=== PATIENT | female | born 1985 | race Caucasian/White ===

== ENCOUNTER 2017-01-20 08:33 | Emergency (ER) | payer SELFPAY ==
[2017-01-20] MEDS ORDERED: MUPIROCIN 2% OINTMENT 22 GM TP ONE (10:02)
--- NOTE | 2017-01-20 10:06 | ER Document Report ---
HPI - HPI Patient complains to provider of: rash Onset: Last week Onset/Duration: Persistent Pain Level: 2 Context: Patient presents to the emergency department with complaints of a rash that started last week. Patient reports rash to her chin left forearm right flank. She reports when she was younger she was told it was shingles. She reports it was brought on by stress. She denies other symptoms such as fever vomiting diarrhea. She has a several areas of Honey colored crusted rash. No signs of erythema /warmth/swelling. She reports the area to her LFA is itchy. Associated Symptoms: None Exacerbated by: Denies Relieved by: Denies Similar symptoms previously: Yes Recently seen / treated by doctor: No - REPRODUCTIVE Reproductive: DENIES: : - DERM Skin Color: Normal Past Medical History - General Information source: Patient Last Menstrual Period: iud - Social History Smoking Status: Current Every Day Smoker Cigarette use (# per day): Yes Chew tobacco use (# tins/day): No Frequency of alcohol use: Social Drug Abuse: Marijuana Occupation: caregiver Lives with: Family Family History: Reviewed & Not Pertinent Patient has suicidal ideation: No Patient has homicidal ideation: No Renal/ Medical History: Denies: Hx Peritoneal Dialysis Psychiatric Medical History: Reports: Hx Anxiety Past Surgical History: Reports: Hx Section - 2003 - Immunizations Hx Diphtheria, Pertussis, Tetanus Vaccination: No Vertical Provider Document - CONSTITUTIONAL Agree With Documented VS: Yes Exam Limitations: No Limitations General Appearance: WD/WN, No Apparent Distress - INFECTION CONTROL TRAVEL OUTSIDE OF THE [place] IN LAST 30 DAYS: No - HEENT HEENT: Atraumatic, Normocephalic - NECK Neck: Normal Inspection, Supple. negative: Lymphadenopathy-Left, Lymphadenopathy-Right - RESPIRATORY Respiratory: Breath Sounds Normal, No Respiratory Distress O2 Sat by Pulse Oximetry: 98 - CARDIOVASCULAR Cardiovascular: Regular Rate - NEURO Level of Consciousness: Awake, Alert, Appropriate Motor/Sensory: No Motor Deficit - DERM Integumentary: Rash Adult Front & Back Diagram: 1 - honey colored crusted rash, no open wounds, no pustule, no vesicles 2 - honey colored crusted rash, no open wounds, no pustule, no vesicles 3 - honey colored crusted rash, no open wounds, no pustule, no vesicles Course - Re-evaluation Re-evalutation: 01/20/17 10:16 Patient shown pictures of impetigo. Patient was also instructed on treatment. Instructed to follow up with dermatology for continued symptoms. She was also cautioned about keeping her hands clean, possible spread. She verbalized understanding.. - Vital Signs Vital signs: Temp Pulse Resp BP Pulse Ox 98.1 F 82 16 111/70 98 01/20/17 08:39 01/20/17 08:39 01/20/17 08:39 01/20/17 08:39 01/20/17 08:39 Discharge - Discharge Clinical Impression: Rash, Impetigo Condition: Stable Disposition: HOME, SELF-CARE Instructions: Cephalexin ([facility]), Bactroban Ointment ([facility]), Impetigo ([facility]) Additional Instructions: *You have been treated for a rash *Take medication as prescribed *Apply ointment to sites three times a day for 10 days *Monitor the site for signs of infection such as increasing pain, redness, swelling, warmth *Wash your hands, keep the sites clean *Follow up with a pediatric clinical nurse specialist within one week for recheck *Return to ED for signs of infection, worsening condition, changes, needs Prescriptions: Cephalexin Monohydrate [Keflex 250 Mg Capsule] 250 mg PO QID #28 capsule Forms: Return to Work
[2017-01-20 10:25] VITALS: BP 117/74
== END 2017-01-20 10:26 | disposition home or self-care (01) ==
LOC: ER 08:33
DX: L01.00 Impetigo, unspecified (principal); F17.210 Nicotine dependence, cigarettes, uncomplicated
CPT/HCPCS: 99282; 87070; 87205; J3490

== ENCOUNTER 2017-01-26 06:39 | Emergency (ER) | payer SELFPAY ==
[2017-01-26] MEDS ORDERED: PREDNISONE 20 MG TABLET PO ONE (06:59)
[2017-01-26] MEDS ORDERED: SULFAMETHOXAZOLE/TRIMETHOPRIM 800-160 MG TABLET PO ONE (06:59)
--- NOTE | 2017-01-26 07:00 | ER Document Report ---
ED General - General Chief Complaint: Rash Stated Complaint: RASH Mode of Arrival: Ambulatory Information source: Patient, [facility] Records Notes: 31-year-old female presents with complaints of a rash one week duration. Patient was seen here diagnosis impetigo. Will start on Bactroban and Keflex notes improvement of her rash however the area on the left elbow has worsened. Pt also notes she has an itchy rash around the abdomen and left elbow . pt admits to putting tea tree oil on it to help dry it out TRAVEL OUTSIDE OF THE [place] IN LAST 30 DAYS: No - HPI Onset: Last week Onset/Duration: Worse Quality of pain: Achy Severity: Mild Pain Level: 1 Associated symptoms: Other Exacerbated by: Denies Relieved by: Denies Similar symptoms previously: Yes Recently seen / treated by doctor: Yes - Related Data Allergies/Adverse Reactions: poison miladys extract Allergy (Verified 01/26/17 06:48) Past Medical History - Social History Smoking Status: Current Some Day Smoker Cigarette use (# per day): Yes Chew tobacco use (# tins/day): No Smoking Education Provided: No Frequency of alcohol use: Occasional Drug Abuse: Marijuana Family History: Reviewed & Not Pertinent Patient has suicidal ideation: No Patient has homicidal ideation: No Renal/ Medical History: Denies: Hx Peritoneal Dialysis Psychiatric Medical History: Reports: Hx Anxiety Past Surgical History: Reports: Hx Section - 2003 - Immunizations Hx Diphtheria, Pertussis, Tetanus Vaccination: No Review of Systems - Review of Systems Notes: REVIEW OF SYSTEMS: CONSTITUTIONAL : Denies fever, chills, or sweats. Denies recent illness. EENT: Denies eye, ear, throat, or mouth pain or symptoms. Denies nasal or sinus congestion or discharge. Denies throat, tongue, or mouth swelling or difficulty swallowing. CARDIOVASCULAR: Denies chest pain. Denies palpitations or racing or irregular heart beat. Denies ankle edema. RESPIRATORY: Denies cough, cold, or chest congestion. Denies shortness of breath, difficulty breathing, or wheezing. GASTROINTESTINAL: Denies abdominal pain or distention. Denies nausea, vomiting , or diarrhea. Denies blood in vomitus, stools, or per rectum. Denies black, tarry stools. Denies constipation. GENITOURINARY: Denies difficulty urinating, painful urination, burning, frequency, blood in urine, or discharge. FEMALE GENITOURINARY: Denies vaginal bleeding, heavy or abnormal periods, irregular periods. Denies vaginal discharge or odor. MUSCULOSKELETAL: Denies back or neck pain or stiffness. Denies joint pain or swelling. SKIN: Rash on chin left elbow right lower quadrant of abdomen HEMATOLOGIC : Denies easy bruising or bleeding. LYMPHATIC: Denies swollen, enlarged glands. NEUROLOGICAL: Denies confusion or altered mental status. Denies passing out or loss of consciousness. Denies dizziness or lightheadedness. Denies headache. Denies weakness or paralysis or loss of use of either side. Denies problems with gait or speech. Denies sensory loss, numbness, or tingling. Denies seizures. PSYCHIATRIC: Denies anxiety or stress. Denies depression, suicidal ideation, or homicidal ideation. ALL OTHER SYSTEMS REVIEWED AND NEGATIVE. Dictation was performed using [employer] voice recognition software PHYSICAL EXAMINATION: GENERAL: Well-appearing, well-nourished and in no acute distress. HEAD: Atraumatic, normocephalic. EYES: Pupils equal round and reactive to light, extraocular movements intact, conjunctiva are normal. ENT: Nares patent, oropharynx clear without exudates. Moist mucous membranes. NECK: Normal range of motion, supple without lymphadenopathy LUNGS: Breath sounds clear to auscultation bilaterally and equal. No wheezes rales or rhonchi. HEART: Regular rate and rhythm without murmurs ABDOMEN: Soft, nontender, nondistended abdomen. No guarding, no rebound. No masses appreciated. Female : deferred Musculoskeletal: Normal range of motion, no pitting or edema. No cyanosis. NEUROLOGICAL: Cranial nerves grossly intact. Normal speech, normal gait. Normal sensory, motor exams PSYCH: Normal mood, normal affect. SKIN: Impetigo appearance of left elbow requested. There is secondary cellulitic component to it. There is no elbow joint involvement. There is impetigo noted on the right lower quadrant of the abdomen with urticaria Physical Exam - Vital signs Vitals: Temp Pulse Resp BP Pulse Ox 98.0 F 111 H 14 107/72 98 01/26/17 06:43 01/26/17 06:43 01/26/17 06:43 01/26/17 06:43 01/26/17 06:43 Course - Re-evaluation Re-evalutation: 01/26/17 07:02 It appears patient's rash was improving however has not completely resolved, patient has a secondary rash now due to topical [id number] medication abuse. Patient will be treated for both and is otherwise well-appearing After performing a Medical Screening Examination, I estimate there is LOW risk for any life threatening rash. At this time the patient looks extremely well and there are no signs of systemic infection, however this may change at any time and the rash may change. The patient and I have discussed the diagnosis and risks, and we agree with discharging home with close follow-up with the understanding that symptoms and presentations can change. We also discussed returning to the Emergency Department immediately if new or worsening symptoms occur. We have discussed the symptoms which are most concerning (e.g., changing or worsening pain, fever, numbness, weakness, cool or painful digits) that necessitate immediate return. - Vital Signs Vital signs: Temp Pulse Resp BP Pulse Ox 98.0 F 111 H 14 107/72 98 01/26/17 06:43 01/26/17 06:43 01/26/17 06:43 01/26/17 06:43 01/26/17 06:43 Discharge - Discharge Clinical Impression: Impetigo Allergic reaction Qualifiers: Encounter type: initial encounter Qualified Code(s): T78.40XA - Allergy, unspecified, initial encounter Condition: Stable Disposition: HOME, SELF-CARE Instructions: Impetigo ([facility]) Prescriptions: Cephalexin Monohydrate [Keflex 500 mg Capsule] 500 mg PO QID #40 capsule Famotidine [Pepcid 20 mg Tablet] 20 mg PO DAILY #5 tablet Prednisone [Deltasone 20 mg Tablet] 3 tab PO DAILY 5 Days Sulfamethoxazole/Trimethoprim [Bactrim Ds Tablet] 2 each PO BID #40 tablet Referrals: CORI POLANCO DO [ACTIVE STAFF] - Follow up in 3-5 days
[2017-01-26 07:19] VITALS: BP 121/75
== END 2017-01-26 07:12 | disposition home or self-care (01) ==
LOC: ER 06:39
DX: T78.40XA Allergy, unspecified, initial encounter (principal); L01.00 Impetigo, unspecified; R21 Rash and other nonspecific skin eruption; F17.210 Nicotine dependence, cigarettes, uncomplicated
CPT/HCPCS: 99282; J7512